=== PATIENT | male | born 1990 | race Two or more races ===

== ENCOUNTER 2017-06-27 09:02 | Emergency (ER) | payer OTHER ==
[2017-06-27 09:55] LABS: BASOPHILS # (AUTO) 0.1 10^3/uL (0.0-0.1); BASOPHILS % (AUTO) 0.7 %; EOSINOPHILS # (AUTO) 0.1 10^3/uL (0.0-0.7); EOSINOPHILS % (AUTO) 1.4 %; HGB - HEMOGLOBIN 15.9 g/dL (14.0-18.0); LYMPHOCYTES # (AUTO) 1.5 10^3/uL (1.5-3.5); LYMPHOCYTES % (AUTO) 14.9 %; MEAN CORPUSCULAR HGB CONC 34.4 g/dL (32.0-36.0); MEAN CORPUSCULAR VOLUME 89.9 fL (80.0-94.0); MEAN PLATELET VOLUME 8.3 fL (7.4-11.4); MONOCYTES # (AUTO) 0.6 10^3/uL (0.0-1.0); MONOCYTES % (AUTO) 6.1 %; NEUTROPHILS # (AUTO) 7.8 10^3/uL (1.5-6.6); NEUTROPHILS % (AUTO) 76.9 %; PLT - PLATELET COUNT 307 10^3/uL (130-450); RED BLOOD COUNT 5.12 10^6/uL (4.70-6.10); RED CELL DISTRIBUTION WIDTH 12.5 % (12.0-15.0); WHITE BLOOD COUNT 10.1 x10^3/uL (4.8-10.8)
[2017-06-27 10:08] LABS: ALBUMIN 4.4 g/dL (3.2-5.5); ALBUMIN/GLOBULIN RATIO 1.2 (1.0-2.2); BILIRUBIN,TOTAL 0.7 mg/dL (0.2-1.0); CALCIUM 8.9 mg/dL (8.5-10.3); CREATININE 0.7 mg/dL (0.6-1.2); TOTAL PROTEIN 8.1 g/dL (6.7-8.2)
--- NOTE | 2017-06-27 10:19 | ED Physician Documentation ---
PD HPI GI BLEED - Stated complaint Stated Complaint: ABD PX/VOMITING BLOOD - Chief complaint Chief Complaint: General - History obtained from History obtained from: Patient - History of Present Illness Timing - onset: Today Timing - details: Now resolved Associated symptoms: Hematemesis Similar symptoms before: Has not had sx before - Additional information Additional information: The patient is a 26-year-old male who complains of vomiting blood this morning. He has a history of vomiting almost every morning for the past 4 years, but this morning was the first time he noticed blood in his emesis. He has had no recurrence after the one episode of emesis this morning. He had associated abdominal cramping that has also resolved. He reports intermittent diarrhea, but not today. He denies fever, lightheadedness, or dysuria. He reports no recent change in the color of his stools. He's had no abdominal surgery. Review of Systems Constitutional: denies: Fever Nose: denies: Congestion Throat: denies: Sore throat Cardiac: denies: Chest pain / pressure Respiratory: denies: Dyspnea, Cough GI: reports: Hematemesis (once). denies: Abdominal Pain : denies: Dysuria Skin: denies: Rash Musculoskeletal: denies: Back pain Neurologic: denies: Headache PD PAST MEDICAL HISTORY - Past Medical History Past Medical History: No Respiratory: None Neuro: None Endocrine/Autoimmune: None GI: None - Past Surgical History Past Surgical History: Yes - Present Medications Home Medications: Ambulatory Orders Medication Instructions Recorded Confirmed Promethazine [Phenergan] 25 - 50 mg PO Q6H PRN #10 tab 06/27/17 raNITIdine [Zantac] 150 mg PO BID #30 tablet 06/27/17 - Allergies Allergies/Adverse Reactions: Allergies Allergy/AdvReac Type Severity Reaction Status Date / Time steriod Allergy Rash Uncoded 06/27/17 09:16 - Social History Does the pt smoke?: No Smoking Status: Former smoker Does the pt drink ETOH?: No Does the pt have substance abuse?: No - Immunizations Immunizations are current?: Yes - POLST Patient has POLST: No PD ED PE NORMAL - Vitals Vital signs reviewed: Yes (initially hypertensive) - General General: Alert and oriented X 3, Well developed/nourished - HEENT HEENT: Atraumatic, EOMI, Moist mucous membranes, Pharynx benign - Neck Neck: Supple, no meningeal sign, No adenopathy - Cardiac Cardiac: RRR, No murmur - Respiratory Respiratory: No respiratory distress, Clear bilaterally - Abdomen Abdomen: Normal bowel sounds, Soft, Non tender, No organomegaly - Rectal Rectal: Other (Brown, heme-negative stool.) - Back Back: No CVA TTP - Derm Derm: Normal color, No rash - Extremities Extremities: No edema, No calf tenderness / cord - Neuro Neuro: Alert and oriented X 3, No motor deficit, No sensory deficit, Normal speech PD ED PE EXPANDED - Rectal Rectal: Heme Occult Neg - QC+ Results - Vitals Vitals: Oxygen O2 Source Room air - Labs Labs: Laboratory Tests 06/27/17 06/27/17 09:43 09:43 WBC 10.1 RBC 5.12 Hgb 15.9 Hct 46.1 MCV 89.9 MCH 31.0 MCHC 34.4 RDW 12.5 Plt Count 307 MPV 8.3 Neut # 7.8 H Lymph # 1.5 Payette # 0.6 Eos # 0.1 Baso # 0.1 Absolute Nucleated RBC 0.00 Nucleated RBC % 0.0 Sodium 137 Potassium 4.2 Chloride 103 Carbon Dioxide 26 Anion Gap 8.0 BUN 11 Creatinine 0.7 Estimated GFR (MDRD) 134 Glucose 104 H Calcium 8.9 Total Bilirubin 0.7 AST 30 ALT 37 Alkaline Phosphatase 70 Total Protein 8.1 Albumin 4.4 Globulin 3.7 Albumin/Globulin Ratio 1.2 Lipase 17 L PD MEDICAL DECISION MAKING - ED course Complexity details: reviewed results, re-evaluated patient, considered differential, d/w patient, d/w family ED course: The patient's presentation is most consistent with peptic ulcer disease versus gastritis. Thao-Fofana tear was considered, but is less likely. CBC is normal, and rectal exam reveals heme-negative stool. The patient demonstrated the ability to drink fluids without recurrent nausea. He remained stable and asymptomatic while in the emergency department. He is being discharged with prescriptions for ranitidine and for Phenergan. I discussed with him and his diagnosis, symptomatic treatment and outpatient follow-up, as well as potentially worrisome signs or symptoms that should prompt reevaluation in the emergency department. Departure - Departure Disposition: [facility]/Unit DC/Xfer Clinical Impression: Peptic gastritis Hematemesis Qualifiers: Nausea presence: unspecified Qualified Code(s): K92.0 - Hematemesis Condition: Stable Instructions: ED Bleed UGI Stable Follow-Up: [facility] [Provider Group] Prescriptions: Promethazine [Phenergan] 25 - 50 mg PO Q6H PRN #10 tab PRN Reason: Nausea / Vomiting raNITIdine [Zantac] 150 mg PO BID #30 tablet Comments: You can take ranitidine twice daily as prescribed to help decrease the amount of acid in your stomach. You can use Phenergan as prescribed if needed for nausea. Follow-up with primary physician within 2 weeks if possible. Call to schedule appointment. Return to the emergency department if you develop increasing abdominal pain, persistent vomiting, or otherwise worsening symptoms. Discharge Date/Time: 06/27/17 10:28
[2017-06-27 10:28] VITALS: BP 129/72
--- NOTE | 2017-07-01 23:02 | ED Physician Documentation ---
ED Addendum - Addendum Addendum: This addendum is to report an error on the reported disposition for this patient when seen in the emergency department. He was discharged to home (not transferred to a psychiatric hospital). 07/01/17 23:00
== END 2017-06-27 10:28 ==
LOC: ED 09:02
DX: K29.01 Acute gastritis with bleeding (principal); K92.0 Hematemesis; Z87.891 Personal history of nicotine dependence
CPT/HCPCS: 36415; 80053; 83690; 85025; 99283

== ENCOUNTER 2018-07-01 12:16 | Emergency (ER) | payer OTHER ==
[2018-07-01 12:26] VITALS: BP 152/62
[2018-07-01] MEDS ORDERED: DEXAMETHASONE 10 MG/ML VIAL PO STA (12:43)
--- NOTE | 2018-07-01 12:44 | ED Physician Documentation ---
PD HPI UPPER EXT INJURY - Stated complaint Stated Complaint: RIGHT SHOULDER PX - Chief complaint Chief Complaint: Trauma Ext - History obtained from History obtained from: Patient, Family - History of Present Illness Location: Right, Shoulder Type of injury: Blunt / blow Where injury occurred: Work Timing - onset: How many weeks ago (4) Timing - duration: Weeks (4) Timing - details: Abrupt onset, Still present Improved by: Rest, Immobilization Worsened by: Moving, Palpating Associated symptoms: Swelling. 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 He subsequently developed some pain in the shoulder and this is worsened over time. He is continued to go to work he is continued to do all of his usual things and the pain has worsened. He did go into the chiropractor and after an adjustment his pain was somewhat better but it was noted by the chiropractor the likely had a direct impact of the shoulder consistent with an AC separation. The patient states that the cross body movement of the shoulder is painful as well as moving his shoulder and range of motion. Review of Systems Constitutional: denies: Fever Respiratory: denies: Cough GI: denies: Abdominal Pain : denies: Dysuria, Frequency Skin: denies: Rash Musculoskeletal: reports: Joint pain, Joint swelling. denies: Neck pain, Back pain Neurologic: denies: Generalized weakness, Focal weakness, Numbness PD PAST MEDICAL HISTORY - Past Medical History Respiratory: None Endocrine/Autoimmune: None GI: None - Past Surgical History Past Surgical History: Yes - Present Medications Home Medications: Ambulatory Orders Medication Instructions Recorded Confirmed Promethazine [Phenergan] 25 - 50 mg PO Q6H PRN #10 tab 06/27/17 RX: raNITIdine [Zantac] 150 mg PO BID #30 tablet 06/27/17 - Allergies Allergies/Adverse Reactions: Allergies Allergy/AdvReac Type Severity Reaction Status Date / Time steriod Allergy Rash Uncoded 07/01/18 12:24 - Social History Does the pt smoke?: No Smoking Status: Former smoker Does the pt drink ETOH?: No Does the pt have substance abuse?: No - Immunizations Immunizations are current?: Yes - POLST Patient has POLST: No PD ED PE NORMAL - Vitals Vital signs reviewed: Yes (hypertensive ) - General General: Alert and oriented X 3, No acute distress, Well developed/nourished - HEENT HEENT: Atraumatic, PERRL, EOMI - Neck Neck: Supple, no meningeal sign, No bony TTP - Respiratory Respiratory: No respiratory distress - Derm Derm: Normal color, Warm and dry, No rash - Extremities Extremities: No deformity, No edema, Other (There is specific point tenderness over the A/C joint on the right side. There is good ROM to the shoulder joint wi th pain over the A/C with cross body arm positioning. ) - Neuro Neuro: Alert and oriented X 3, block and case maker 2-12 intact, No motor deficit, No sensory deficit, Normal speech Eye Opening: Spontaneous Motor: Obeys Commands Verbal: Oriented GCS Score: 15 - Psych Psych: Normal mood, Normal affect Results - Vitals Vitals: Vital Signs - 24 hr 07/01/18 12:22 Temperature 36.6 C Heart Rate 75 Respiratory 19 Rate Blood Pressure 152/62 H O2 Saturation 97 Oxygen O2 Source Room air - Rads (name of study) shoulder R Radiology: Prelim report reviewed (Impression: Normal shoulder radiography. Sp ecifically normal appearance to the acromioclavicular joint.), EMP read indepedently, See rad report PD MEDICAL DECISION MAKING - ED course Complexity details: considered differential, d/w patient, d/w family ED course: 27-year-old male with a shoulder injury from a direct contusion from the top of that has some pain directly over the acromioclavicular joint. X-ray exam is without evidence of obvious distraction. Clinically he has signs and symptoms consistent with sprain of the AC ligament. He is administered dexamethasone we will put him into a sling for 1 week. Departure - Departure Disposition: 01 Home, Self Care Clinical Impression: Sprain of shoulder, right Condition: Stable Instructions: ED Sprain AC Joint, ED Sprain Shoulder Follow-Up: [facility] [Provider Group] Discharge Date/Time: 07/01/18 13:21
--- NOTE | 2018-07-01 13:06 | XRAY Report ---
Reason: Looks like an A/C separation Procedure Date: 07/01/2018 Accession Number: [id number] / [id number] Procedure: XR - Shoulder 3 View RT CPT Code: FULL RESULT: EXAM: RIGHT SHOULDER RADIOGRAPHY EXAM DATE: 07/01/2018 12:59 PM. CLINICAL HISTORY: Looks like an acromioclavicular separation. COMPARISON: None. TECHNIQUE: 3 views. FINDINGS: Bones: Normal. No fracture or bone lesion. Joints: The glenohumeral and acromioclavicular joints are normal. Soft tissues: The visualized hemithorax is unremarkable. No soft tissue swelling. IMPRESSION: Normal shoulder radiography. Specifically, normal appearance to the acromioclavicular joint. RADIA
== END 2018-07-01 13:21 | disposition home or self-care (01) ==
LOC: ED 12:16
DX: S43.491A Other sprain of right shoulder joint, initial encounter (principal); W22.8XXA Striking against or struck by other objects, initial encounter; Y92.59 Other trade areas as the place of occurrence of the external cause; Y99.0 Civilian activity done for income or pay; Z87.891 Personal history of nicotine dependence
CPT/HCPCS: 99282; 99283

== ENCOUNTER 2023-10-14 10:01 | Emergency (ER) | payer OTHER ==
[2023-10-14 10:27] VITALS: BP 119/63; O2SAT 100
--- NOTE | 2023-10-14 11:31 | XRAY Report ---
PROCEDURE: Shoulder 2+V RT INDICATIONS: R shoulder pain TECHNIQUE: 3 views of the shoulder were acquired. COMPARISON: None. FINDINGS: Bones: No fractures or dislocations. No suspicious bony lesions. Visualized ribs appear intact. Soft tissues: No suspicious soft tissue calcifications. The visualized lungs are within normal limi ts. IMPRESSION: No acute bony abnormality. Reviewed by: Ciaran Gutierrez MD on 10/14/2023 11:29 AM PDT Approved by: Ciaran Gutierrez MD on 10/14/2023 11:29 AM PDT Station ID: [id number]
--- NOTE | 2023-10-14 12:25 | ED Physician Documentation ---
PD HPI UPPER EXT INJURY - Stated complaint Stated Complaint: RT ARM PX - Chief complaint Chief Complaint: Ext Problem - Additonal information Additional information: 32 yo male here for right arm pain numbness tingling sensation. Patient says that he has had pinched nerves to his right shoulder in the past he says that he slept on it wrong a couple nights ago and woke up 3-4 nights ago with right shoulder pain he says during the day it feels better its at nighttime when he is trying to fall asleep that he started's to notice a pins and needle sensation in his right fourth and fifth finger. Full range of motion right shoulder as well as right elbow right hand he has an appoint with his primary care provider coming up soon he has been trying Tylenol ibuprofen with little to no relief his biggest complaint is that he is having a hard time sleeping. PD PAST MEDICAL HISTORY - Past Medical History Past Medical History: Yes Cardiovascular: None Respiratory: None Neuro: None, CVA Endocrine/Autoimmune: None GI: None : None Psych: None Musculoskeletal: Chronic back pain Derm: None - Past Surgical History Past Surgical History: Yes - Present Medications Home Medications: Ambulatory Orders Medication Instructions Recorded Confirmed Gabapentin [Neurontin] 100 mg PO HS PRN #15 cap 10/14/23 - Allergies Allergies/Adverse Reactions: Allergies Allergy/AdvReac Type Severity Reaction Status Date / Time steriod Allergy Rash Uncoded 10/14/23 10:18 - Social History Does the pt smoke?: No Smoking Status: Never smoker Does the pt drink ETOH?: No Does the pt have substance abuse?: No - Immunizations Immunizations are current?: Yes - POLST Patient has POLST: No PD ED PE NORMAL - Vitals Vital signs reviewed: Yes - General General: Alert and oriented X 3, No acute distress, Well developed/nourished (Right upper extremity: Right shoulder has full range of motion no crepitus no popping no limitations with flexion extension abduction adduction. Equal strength bilaterally strong radial pulse) Results - Vitals Vitals: Vital Signs - 24 hr 10/14/23 12:33 Respiratory 16 Rate Oxygen O2 Source Room air - Rads (name of study) Right shoulder x-ray Relevant Findings:: Final report received, EMP independent interpretation of test (No acute bony fractures or abnormalities), Other PD Medical Decision Making - ED course ED course: 32-year-old male presents emergency department for right shoulder pain. Sounds like patient has a possible entrapped nerve his pain is well-controlled throughout the day when he is having a hard time sleeping. X-rays are complete which did not reveal any bony abnormalities or findings of dislocations or fractures. Patient was given a small prescription of gabapentin for him to take once nightly before he goes to bed he has an appoint with his primary care provider soon and informed him that they can make sure decisions about possible more advanced imaging pending outpatient does with gabapentin. Patient also informed that he should consider doing some physical therapy to help out with this pain and discomfort. All questions answered return precautions given patient safe for discharge at this time. Departure - Departure Disposition: 01 Home, Self Care Clinical Impression: Pinched nerve in shoulder Right shoulder pain Qualifiers: Chronicity: acute Qualified Code(s): M25.511 - Pain in right shoulder Instructions: Exercises Shoulder Flexibility, ED Cervical Radiculopathy Prescriptions: Gabapentin [Neurontin] 100 mg PO HS PRN #15 cap PRN Reason: Pain >8 Comments: Thank you for trusting us with your care. It sounds like you have a pinched nerve in your right shoulder. I prescribed gabapentin you can take 100 mg at bedtime before you go to bed to help with your nerve pain follow-up with your primary care provider for physical therapy referral and consider possible acupuncture to help with the nerve pain that you are experiencing. No heat stick with just ice 20 minutes on 1 hour off and follow-up with your primary care provider. Forms: PCP List Discharge Date/Time: 10/14/23 12:34
== END 2023-10-14 12:34 | disposition home or self-care (01) ==
LOC: ED 10:01
DX: G58.9 Mononeuropathy, unspecified (principal)
CPT/HCPCS: 99283; 99284